=== PATIENT | female | born 2000 | race Caucasian/White ===

== ENCOUNTER 2022-10-13 15:14 | Emergency (ER) | payer OTHER ==
[~2022-10-13] VITALS: Ht 157.5 cm; Wt 68.0 kg
== END 2022-10-13 19:43 | disposition home or self-care (01) ==
LOC: ER 15:14
DX: Z34.90 Encounter for supervision of normal pregnancy, unspecified, unspecified trimester (principal); N83.202 Unspecified ovarian cyst, left side; N39.0 Urinary tract infection, site not specified; R10.2 Pelvic and perineal pain; R11.10 Vomiting, unspecified

== ENCOUNTER 2022-11-18 12:35 | Outpatient (CLI) | payer OTHER | END 2022-11-18 16:39 | disposition home or self-care (01) | LOC: PRENATAL 12:35 | PROVIDERS: ATTEND Obstetrics & Gynecology Maternal & Fetal Medicine | DX: O36.80X0 Pregnancy with inconclusive fetal viability, not applicable or unspecified (principal); Z36.82 Encounter for antenatal screening for nuchal translucency; Z14.8 Genetic carrier of other disease; Z3A.12 12 weeks gestation of pregnancy ==

== ENCOUNTER → 2023-01-15 13:22 | Outpatient (CLI) | payer OTHER ==
[~2023-01-15 13:22] MED LIST: FOLIC ACID1 MG PO; PRENA1 CHEW TA1.4 MG PO
== END | disposition home or self-care (01) ==
LOC: PRENATAL 13:22
PROVIDERS: ATTEND Obstetrics & Gynecology Maternal & Fetal Medicine
DX: O35.3XX0 Maternal care for (suspected) damage to fetus from viral disease in mother, not applicable or unspecified (principal); O44.00 Complete placenta previa NOS or without hemorrhage, unspecified trimester; Z3A.20 20 weeks gestation of pregnancy

== ENCOUNTER 2023-02-23 13:46 | Outpatient (CLI) | payer OTHER | END 2023-02-23 13:47 | disposition home or self-care (01) | LOC: PRENATAL 13:46 | PROVIDERS: ATTEND Obstetrics & Gynecology Maternal & Fetal Medicine | DX: O26.849 Uterine size-date discrepancy, unspecified trimester (principal); Z3A.26 26 weeks gestation of pregnancy ==

== ENCOUNTER 2023-04-09 13:14 | Outpatient (CLI) | payer OTHER | END 2023-04-09 13:15 | disposition home or self-care (01) | LOC: PRENATAL 13:14 | PROVIDERS: ATTEND Obstetrics & Gynecology Maternal & Fetal Medicine | DX: O26.849 Uterine size-date discrepancy, unspecified trimester (principal); O36.8199 Decreased fetal movements, unspecified trimester, other fetus; Z3A.32 32 weeks gestation of pregnancy ==

== ENCOUNTER 2023-05-19 14:00 | Inpatient (IN) | payer OTHER ==
[~2023-05-19] VITALS: Ht 160 cm; Wt 78.0 kg
[2023-06-01 07:06] LABS: HEMATOCRIT 31.3 % (36.0-45.00); HEMOGLOBIN 10.2 g/dL (12.0-15.00); MEAN CELL VOLUME 76.7 fL (80.00-100.00); MEAN CORPUSCULAR HGB CONC 32.6 g/dl (32.0-36.0); PLATELET COUNT 245 K/uL (150-450); RED BLOOD COUNT 4.08 M/uL (4.00-6.00); RED CELL DISTRIBUTION WIDTH 14.4 % (11.5-14.5)
[2023-06-01 07:21] LABS: PH,URINE 6.5 (5.0-8.0); URINE APPEARANCE Clear; URINE BILIRRUBIN Negative (NEGATIVE); URINE BLOOD Negative; URINE COLOR Yellow; URINE GLUCOSE Negative (NEGATIVE); URINE LEUKOCYTE Small; URINE NITRATE Negative; URINE PROTEIN Negative (NEGATIVE)
[2023-06-01 07:24] LABS: URINE BACTERIA 1820.4 uL (0.0-1933); URINE EPITHELIAL CELLS 42.9 uL (0.0-38.8); URINE WBC 22.3 uL (0.0-23.2)
[2023-06-01 07:25] LABS: INR < 0.93; PARTIAL THROMBOPLASTIN TIME 29.6 SECONDS (22.0-34.0); PROTHROMBIN TIME 9.3 SECONDS (9.0-11.5)
[2023-06-01 07:26] LABS: URINE RBC 1.5 uL (0.0-20.8)
[2023-06-01] MEDS ORDERED: MORPHINE SULFATE 4 MG/ML CARTRIDGE IV ONE (08:30)
[2023-06-01] MEDS ORDERED: OXYTOCIN 500 ML IV SCH (08:30)
[2023-06-01] MEDS ORDERED: MORPHINE SULFATE 4 MG/ML VIAL IV ONE (13:30)
[2023-06-01] MEDS ORDERED: OXYTOCIN 10 UNITS/ML VIAL ONE (18:55)
[2023-06-01] MEDS ORDERED: ERYTHROMYCIN BASE 3.5 GM OINT...G. OP ONE (18:55)
[2023-06-01] MEDS ORDERED: MEPERIDINE HCL/PF 50 MG/ML VIAL IM PRN (20:15)
[2023-06-01] MEDS ORDERED: PROMETHAZINE HCL 50 MG/ML AMPUL IM PRN (20:15)
[2023-06-01] MEDS ORDERED: OXYTOCIN 10 UNITS/ML VIAL IV ONE (20:30)
[2023-06-01] MEDS ORDERED: ERYTHROMYCIN BASE 1 GM TUBE OP ONE (20:30)
[2023-06-01] MEDS ORDERED: MEPERIDINE HCL/PF 25 MG/ML VIAL IV PRN (21:30)
[2023-06-01] MEDS ORDERED: ONDANSETRON HCL 2 MG/ML VIAL IV PRN (21:30)
[2023-06-01] MEDS ORDERED: MORPHINE SULFATE 4 MG in 0.9 % SODIUM CHLORIDE 9 ML IV PRN (21:30)
[2023-06-01 22:49] LABS: ABG pCO2 67.8 mmHg (35-45)
[2023-06-01 22:50] LABS: ABG PO2 17.8 mmHg (80-100); BASE EXCESS -13.2 mmol/l; BICARBONATE 18.3 mmol/l (23-25); SaO2 12.3 %; Tco2 20.4 mmol/l; o2 21 %
[2023-06-02 07:09] LABS: HEMATOCRIT 29.2 % (36.0-45.00); HEMOGLOBIN 9.6 g/dL (12.0-15.00); MEAN CORPUSCULAR HEMOGLOBIN 24.9 pg (27.00-32.0); MEAN CORPUSCULAR HGB CONC 32.8 g/dl (32.0-36.0); PLATELET COUNT 218 K/uL (150-450); RED BLOOD COUNT 3.85 M/uL (4.00-6.00); RED CELL DISTRIBUTION WIDTH 14.3 % (11.5-14.5)
[2023-06-02] MEDS ORDERED: SIMETHICONE 125 MG CAPSULE PO SCH (08:00)
[2023-06-02] MEDS ORDERED: PNV,CALCIUM 72/IRON/FOLIC ACID 1 TAB TABLET PO SCH (08:00)
[2023-06-02] MEDS ORDERED: DOCUSATE SODIUM 100MG CAP PO SCH (08:00)
[2023-06-02] MEDS ORDERED: OxyCODONE HCL/APAP UD (PERCOCET) PO PRN (08:00)
[2023-06-02] MEDS ORDERED: IBUprofen 800 MG TABLET PO PRN (18:15)
== END 2023-06-04 14:31 | disposition home or self-care (01) | DRG 788 ==
LOC: OB/GYN 05-31 14:00 → LDR 06-01 06:10 → O/R 06-01 19:26 → OB/GYN 06-01 21:13
PROVIDERS: ADMIT Obstetrics & Gynecology; ATTEND Obstetrics & Gynecology
PROC: 4A1HXCZ Monitoring of Products of Conception, Cardiac Rate, External Approach (ICD-10-PCS; 2023-06-01)
PROC: 10D00Z1 Extraction of Products of Conception, Low, Open Approach (ICD-10-PCS; principal; 2023-06-01 21:30)
DX: O33.8 Maternal care for disproportion of other origin (principal); Z3A.40 40 weeks gestation of pregnancy; Z37.0 Single live birth; Z20.822 Contact with and (suspected) exposure to COVID-19